=== PATIENT | male | born 1995 | race American Indian/Alaskan Native ===

== ENCOUNTER 2017-11-02 21:28 | Emergency (ER) | payer MEDICAID ==
[2017-11-02 21:35] VITALS: BP 126/80; PULSE 95; TEMP 98.6; O2SAT 99
--- NOTE | 2017-11-02 21:52 | C.PDOC ---
History Of Present Illness 21 yo male come in for evaluation of asymptomatic rash to penis developed for past 2-3 days. Pt reports, had UTI sx associated with penile discharges, treated with Doxycycline with complete improvement, now noted rash few days ago. Otherwise, denies high fever, chills, sore throat, abd. pain, N/V, penile discharges or pain, testicular swelling or pain, denies UTi sx, hematuria. Ambulate to Ed for evaluation, not in any apparent distress. Time Seen by Provider: 11/02/17 21:37 Chief Complaint (Nursing): Abnormal Skin Integrity History Per: Patient Past Medical History Reviewed: Historical Data, Nursing Documentation, Vital Signs Vital Signs: Last Vital Signs Temp 98.6 F 11/02/17 21:31 Pulse 95 H 11/02/17 21:31 Resp 18 11/02/17 21:31 BP 126/80 11/02/17 21:31 Pulse Ox 99 11/02/17 22:12 - Medical History PMH: No Chronic Diseases Denies: Chronic Kidney Disease Surgical History: No Surg Hx Family History: States: Unknown Family Hx - Social History Hx Tobacco Use: Yes (" some days") Hx Alcohol Use: Yes Hx Substance Use: Yes (MARIJUANA) - Immunization History Hx Tetanus Toxoid Vaccination: Yes Hx Influenza Vaccination: Yes Hx Pneumococcal Vaccination: No Review Of Systems Except As Marked, All Systems Reviewed And Found Negative. Constitutional: Negative for: Fever, Chills ENT: Negative for: Throat Pain Cardiovascular: Negative for: Chest Pain Respiratory: Negative for: Cough, Shortness of Breath, Wheezing Gastrointestinal: Negative for: Nausea, Vomiting Genitourinary: Positive for: Rash. Negative for: Dysuria, Frequency, Incontinence, Hematuria, Penile Discharge, Penile Pain Musculoskeletal: Negative for: Neck Pain, Back Pain Neurological: Negative for: Weakness, Numbness Physical Exam - Physical Exam Appears: Well, Non-toxic, No Acute Distress Skin: Normal Color, Warm, Dry, No Rash Head: Normacephalic Eye(s): bilateral: PERRL Throat: No Erythema, No Drooling Neck: Trachea Midline, Supple Cardiovascular: Rhythm Regular Respiratory: No Decreased Breath Sounds, No Accessory Muscle Use, No Stridor, No Wheezing Gastrointestinal/Abdominal: Soft, No Tenderness, No Distention, No Guarding, No Rebound Back: No CVA Tenderness Male Genital: No Testicular Tenderness, No Testicular Swelling, No Scrotal Swelling, Other (small umbilicated rash in line over penile shaft, non-tender, no discharges.) Extremity: Normal ROM, No Deformity, No Swelling Neurological/Psych: Oriented x3, Normal Speech ED Course And Treatment O2 Sat by Pulse Oximetry: 99 Pulse Ox Interpretation: Normal Progress Note: On re-eval, pt is afebrile, hemodynamicaly stable. Non-toxic. Tolerate Po well in ED. ENT: no acute findings, uvul amidline, no edema. Neck : Supple. Lungs: CTA B/L, BS equal B/L. Abd: soft, NT/ND, (-) guarding, (-) rebound. back: (-) CVA tenderness. UA results review and normal. results review with pt. Pt has clinical findings c/w molluscum contag. Pt advised on course of ds. ref. to f/u with PMD, Urology in 2-3 days for re-eval. return if any new changes. Disposition Counseled Patient/Family Regarding: Studies Performed, Diagnosis, Need For Followup - Disposition Referrals: Magali Brock MD [Staff Provider] - Guy Zuniga Jr., MD [Staff Provider] - Disposition: HOME/ ROUTINE Disposition Time: 21:50 Condition: STABLE Additional Instructions: Follow up with PM, Urology in 2-3 days for re-evaluation. return to ED if any worsening or new changes. Instructions: Molluscum Contagiosum Forms: [employer] (Greenlandic) - Clinical Impression Clinical Impression: Molluscum contagiosum
[2017-11-02 22:17] LABS: SQUAMOUS EPITHIAL < 1 /hpf (0-5); URINE BILIRUBIN NEGATIVE (NEGATIVE); URINE BLOOD NEGATIVE (NEGATIVE); URINE CLARITY Clear (Clear); URINE COLOR Yellow (YELLOW); URINE GLUCOSE (UA) NORMAL (Normal); URINE LEUKOCYTE ESTERASE NEG Leu/uL (Negative); URINE PROTEIN 1+ mg/dL (NEGATIVE)
[2017-11-02 22:40] VITALS: RESP 20
== END 2017-11-02 22:40 | disposition home or self-care (01) ==
LOC: C.ER 21:28
DX: B08.1 Molluscum contagiosum (principal); Z72.0 Tobacco use